=== PATIENT | female | born 1945 | race Caucasian/White ===

== ENCOUNTER → 2017-01-30 | Outpatient (CLI) | payer MEDICARE, OTHER ==
[~2017-01-30] MED LIST: ASCORBIC ACID500 MG PO; DESYREL-DPS50 MG PO; FEOSOL-DPS325 MG PO; FLEXERIL-DPS10 MG PO; FOSAMAX70 MG PO; HCTZ12.5 MG PO; MIRALAX PACKET17 GM PO; OXY IR DPS5 MG PO; OYSTER SHELL C500 MG PO; SENOKOT S1 TAB PO; TYLENOL DPS325 MG PO; ULTRAM DPS50 MG PO; XARELTO10 MG PO; ZESTRIL DPS20 MG PO; ZOLOFT DPS50 MG PO
== END | disposition home or self-care (01) ==
LOC: PTH.S 09:14 → EDBD 10:49
DX: Z01.818 Encounter for other preprocedural examination (principal); I10 Essential (primary) hypertension; R00.1 Bradycardia, unspecified

== ENCOUNTER 2017-02-05 09:13 | Inpatient (IN) | payer MEDICARE, OTHER ==
[~2017-02-05] VITALS: Ht 157.5 cm; Wt 78.2 kg
--- NOTE | 2017-02-05 13:44 | HP ---
ADMIT: 02/05/2017 RM/LOC: W.01 [facility] MR#: [id number] [address] [address] JOHNY MAYO [address] [place] [address] Pre-OP History and Physical SEX: F AGE: 71 : 1945 DATE OF SERVICE: CHIEF COMPLAINT: Osteoarthritis, right knee. HISTORY: This patient presents today. She had a knee arthroscopy back in October and did well initially, but then had a recurrent injury and since that time, her radiographs show a considerable progression of her lateral compartment arthritis with joint space collapse, subchondral sclerosis, and early marginal osteophytes. Because of ongoing pain and failure to improve with conservative care, which has included medication, walking aid, and injection, she presents with total knee arthroplasty. PAST SURGICAL HISTORY: Include a gastric bypass, mastectomy, hysterectomy, cataract extraction, tonsillectomy, carpal tunnel release, rotator cuff repair, and total hip arthroplasty. MEDICATIONS: Include: 1. Trazodone. 2. Sertraline. 3. Lisinopril. 4. Hydrochlorothiazide. 5. Extra-strength Excedrin as needed. ALLERGIES: NO ALLERGIES TO MEDICINES. FAMILY HISTORY: Positive for breast cancer. SOCIAL HISTORY: The patient is . She and live in [facility]. REVIEW OF SYSTEMS: Negative. PHYSICAL EXAMINATION: This patient has a valgus deformity of the right knee. She has lateral joint line pain and small effusion. Limited range of motion secondary to pain. RADIOGRAPHS: Were described above. IMPRESSION: Osteoarthritis, right knee. RECOMMENDATIONS: Total knee arthroplasty. Risks, benefits, alternatives, as well as potential complications were discussed. Deyanira Paul MD/ miracle JOB #: [id number] CC: Deyanira Paul, Attending Physician ADMIT: 02/05/2017 RM/LOC: W.01 [facility] MR#: [id number] [facility] [address] [address] JOHNY MAYO [address] [place], [place] [id number] Pre-OP History and Physical SEX: F AGE: 71 : 1945 Neil Perez, Family Physician
--- NOTE | 2017-02-06 07:44 | OR ---
ADMIT: 02/05/2017 RM/LOC: 505 [facility] MR#: [id number] [address] [address] JOHNY MAYO [address] [place] [address] Operative/Delivery Room Report SEX: F AGE: 71 : 1945 SURGERY DATE: 02/05/2017 SURGEON: Deyanira Paul MD PREOPERATIVE DIAGNOSIS: Osteoarthritis, right knee. POSTOPERATIVE DIAGNOSIS: Osteoarthritis, right knee. PROCEDURE: Right total knee arthroplasty. ASSISTED BY: OLIVIA Black ANESTHESIA: Spinal. TOURNIQUET TIME: 43 minutes. ESTIMATED BLOOD LOSS: 25 mL. COMPLICATIONS: None. SPECIMEN: Bone. COMPONENTS: Darius and Darius Attune total knee system with a #5 posterior stabilized lugged femoral, #4 fixed bearing tibial, 5 mm tibial articular, and 38 mm patella. We used [place] SpeedSet bone cement 80 g for the tibia and femur and another 40 mg of [place] SpeedSet without antibiotics for the patella. PROCEDURE IN DETAIL: This patient was brought to the operating room. After satisfactory level anesthesia was achieved, the right lower extremity was prepped and draped in the usual sterile fashion. Under tourniquet ischemia, a midline incision was made over the anterior aspect of the right knee. Dissection was carried through the subcutaneous tissue where hemostasis was achieved using electrocautery. Skin flaps were made at the level of joint capsule. A medial parapatellar incision was performed. The knee was flexed, and then using an intramedullary alignment guide, I prepared the distal femur for a #5 posterior stabilized lugged femoral component. She did have quite a bit of osteoporosis particularly over the medial femoral condyle and medial femoral trochlea. An external alignment guide was made and used to make my tibial cut and a #4 gave us best coverage to the proximal tibia. Again, she did have a fair amount of osteoporosis. With trial components in the knee, the patient had very good range of motion and stability. The patella was measured and cut and prepared for 38 mm patellar component. At this point, all trial components were removed. Our local injection was injected per protocol and then all bony surface was thoroughly irrigated using pulsatile lavage. All surfaces were dried. Then, the femur and tibia were cemented ADMIT: 02/05/2017 RM/LOC: 505 [facility] MR#: [id number] [address] [address] JOHNY MAYO [address] [place] [address] Operative/Delivery Room Report SEX: F AGE: 71 : 1945 into position and found that the bone cement was getting fairly hard for the patella, and therefore, we held the knee in extension, irrigated with warm antibiotic solution and a 40 mg batch of [place]uy SpeedSet bone cement was mixed and I cemented in the patellar component. Once all the cement had hardened, I flexed the knee, removed any extruded cement with an osteotome, irrigated the knee to remove any cement debris, then released the tourniquet. Hemostasis was achieved using electrocautery. My final component was impacted on the tibia and the knee reduced. At this point, the knee was closed with interrupted #1 Vicryl and running #2 Quill suture, and the capsule and synovium as a single layer, 2-0 Vicryl in the subcutaneous tissue, and then amrit in the skin. A sterile dressing was applied and the patient was transferred from the operative suite in stable condition. Deyanira Paul MD/ miracle JOB #: [id number] CC: Deyanira Paul, Attending Physician Neil Perez, Family Physician
[2017-02-08] MEDS ORDERED: DESYREL-DPS50 MG PO (18:46)
[2017-02-08] MEDS ORDERED: ZESTRIL DPS20 MG PO (18:46)
[2017-02-08] MEDS ORDERED: ZOLOFT DPS50 MG PO (18:46)
[2017-02-08] MEDS ORDERED: HCTZ12.5 MG PO (18:46)
[2017-02-08] MEDS ORDERED: FOSAMAX70 MG PO (18:47)
[2017-02-08] MEDS ORDERED: OYSTER SHELL C500 MG PO (18:47)
[2017-02-08] MEDS ORDERED: ULTRAM DPS50 MG PO (18:48)
[2017-02-08] MEDS ORDERED: FEOSOL-DPS325 MG PO (18:48)
[2017-02-08] MEDS ORDERED: SENOKOT S1 TAB PO (18:48)
[2017-02-08] MEDS ORDERED: TYLENOL DPS325 MG PO (18:48)
[2017-02-08] MEDS ORDERED: XARELTO10 MG PO (18:49)
[2017-02-08] MEDS ORDERED: ASCORBIC ACID500 MG PO (18:49)
[2017-02-08] MEDS ORDERED: FLEXERIL-DPS10 MG PO (18:49)
[2017-02-08] MEDS ORDERED: MIRALAX PACKET17 GM PO (18:50)
[2017-02-08] MEDS ORDERED: OXY IR DPS5 MG PO (18:50)
--- NOTE | 2017-02-09 08:51 | CO ---
ADMIT: 02/05/2017 RM/LOC: [facility] MR#: [id number] [id number] [place], [place] [address] JOHNY MAYO [address] [place] [address] Consultation Report SEX: F AGE: 71 : 1945 DATE OF CONSULTATION: 01/30/2017 ATTENDING PHYSICIAN: Deyanira Paul CONSULTING PHYSICIAN: Neil Perez MD CHIEF COMPLAINT: Right knee pain. REASON FOR CONSULTATION: Medical comanagement. HISTORY OF PRESENT ILLNESS: Johny is a very pleasant, 71-year-old white female, who presents to my outpatient clinic today 01/30/2017 for a preoperative exam. She will be having an elective right total knee arthroplasty with Dr. Paul on 02/05/2017. She has chronic osteoarthritis pain in the knee and is now requesting that it be definitively repaired. PAST MEDICAL HISTORY: Remarkable for: 1. Hypertension. 2. 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 3. Insomnia. 4. Depression. 5. Osteoporosis. 6. Osteoarthritis of the left knee. 7. Osteoarthritis of the right knee. 8. Allergic rhinitis. PAST SURGICAL HISTORY: 1. Gastric bypass. 2. Left total mastectomy. 3. Cholecystectomy. 4. Bilateral total hip arthroplasties. 5. Tonsillectomy. 6. Hysterectomy. ALLERGIES: SHE IS ALLERGIC TO DEMEROL WHICH "CAUSED HER TO BE "TOTALLY OUT OF IT." MEDICATIONS: Her outpatient medications include; 1. Naproxen 220 mg tablets two tabs daily. 2. Trazodone 50 mg at bedtime. 3. Lisinopril 20 mg b.i.d. 4. Zoloft 150 mg daily. 5. Fosamax 70 mg once a week. 6. Os-Herson + D 500/200 one tab b.i.d. 7. Hydrochlorothiazide 25 mg tablets 1/2 tab daily. SOCIAL HISTORY: She is to her Robert. She is retired from the [employer]. She is a former smoker, quit in 1992. She denies any alcohol or recreational drug use. ADMIT: 02/05/2017 RM/LOC: [facility] MR#: [id number] [address] [address] JOHNY MAYO [address] [place], [place] [id number] Consultation Report SEX: F AGE: 71 : 1945 REVIEW OF SYSTEMS: She denies any chest pain, shortness of breath, dyspnea on exertion. She is able to walk up a flight of stairs and several blocks without any chest pain, or dyspnea. She notes that her knee pain limits her more than anything else. She has not had any previous heart or chronic lung disease. PHYSICAL EXAMINATION: VITAL SIGNS: Her blood pressure is 116/60, pulse 72, respirations 16, temp 96.8, weight is 170 pounds, height is 61-1/2 inches. GENERAL: She is awake, alert, in no acute distress, comfortable in the exam room today. HEENT: Normocephalic and atraumatic. NECK: Supple. No lymphadenopathy. No thyromegaly. HEART: Regular rate and rhythm. No murmurs, gallops, or rubs. LUNGS: Clear to auscultation bilaterally. EXTREMITIES: No cyanosis, clubbing, or edema. LABORATORY AND X-RAY DATA: Preoperative CBC shows a hemoglobin of 11.1, white count 4.8, and platelet count of 195. BMP is without clinically significant abnormalities, and a preoperative EKG shows sinus bradycardia without any ischemic changes or conduction abnormalities. ASSESSMENT: 1. Chronic osteoarthritis of the right knee. 2. Hypertension. 3. Osteoporosis. 4. Depression. PLAN: Johny is cleared to proceed with her surgery at this time. She is advised to hold her naproxen until her day of surgery. She is advised that should she need anything for pain, she is to use Tylenol, and if that is not working she is to call me and I will give her prescription for Ultram. The remainder of her medications, she is advised to hold the morning of surgery. We can readdress and reinstitute those as soon as she is done with her surgery. Postoperatively, we will plan on Xarelto for deep vein thrombosis prophylaxis. Neil Perez MD/ miracle JOB #: [id number] CC: Deyanira Paul, Attending Physician UNKNOWN, Family Physician
--- NOTE | 2017-03-05 11:55 | DS ---
ADMIT: 02/05/2017 RM/LOC: 505 [facility] MR#: [id number] 26[address] [facility] [address] [place], [place] [address] VINICIO MAYO [address] [place] [address] General Discharge Summary SEX: F AGE: 71 : 1945 ADMISSION DATE: 02/05/2017 DISCHARGE DATE: 02/07/2017 REASON FOR ADMISSION: Elective right total knee arthroplasty after failing conservative care. PAST SURGICAL HISTORY: Includes gastric bypass, mastectomy, hysterectomy, cataract extraction, tonsillectomy, carpal tunnel release, rotator cuff repair and total hip arthroplasty. ACTIVE MEDICAL PROBLEMS: Hypertension, insomnia, depression, osteoporosis, osteoarthritis of the right and left knee, and allergic rhinitis. PREOPERATIVE DIAGNOSIS: Right knee osteoarthritis. POSTOPERATIVE DIAGNOSIS: Right knee osteoarthritis. PROCEDURE PERFORMED: Right total knee arthroplasty. SURGEON: Deyanira Paul MD FINANCIAL OPERATIONS CONSULTANT: aCio Varner PA-C ANESTHESIA: Spinal. TOURNIQUET TIME: 43 minutes. ESTIMATED BLOOD LOSS: 25 mL. COMPLICATIONS: None. HOSPITAL COURSE: The patient was admitted on 02/05/2017 for elective right total knee arthroplasty done by Dr. Paul without any complications. The patient tolerated the procedure well. Postoperatively on day 1, the patient complained of knee pain and itching on her right knee, which resolved without any complications. As expected, she did suffer from acute blood loss anemia. Her hemoglobin dropped to 9.2 on 02/07/2017, but she remained hemodynamically stable and did not require blood transfusion. By postoperative day #2, she was safe and participating well with physical therapy. She was stable and ready for discharge home with plans for outpatient physical therapy. DISCHARGE MEDICATIONS: 1. Sertraline 150 mg every day. 2. Trazodone 50 mg in the evening. 3. Lisinopril 20 mg twice daily. 4. Hydrochlorothiazide 12.5 mg in the evening. 5. Oyster shell 500 mg supplement twice daily. 6. Alendronate 70 mg weekly on Wednesdays. 7. Feosol 325 mg supplement twice daily. ADMIT: 02/05/2017 RM/LOC: 505 [facility] MR#: [id number] [address] [address] MARIA ESTHERIVETTEVINICIO K [address] [place] [address] General Discharge Summary SEX: F AGE: 71 : 1945 8. Senokot 2 tablets twice daily. 9. Tylenol 650 mg every 6 hours as needed for pain and fever. 10.Ultram 50 mg 1 to 2 tablets every 6 hours as needed for pain. 11.Vitamin C 500 mg every day with ferrous sulfate. 12.Xarelto 10 mg every day. 13.Flexeril 10 mg 3 times daily as needed for muscle relaxing. 14.Oxycodone IR 5 mg 1 to 2 tablets every 4 hours as needed for pain. 15.MiraLax 17 g daily as needed. DISCHARGE INSTRUCTIONS: The patient was discharged home with plans for outpatient physical therapy per total knee arthroplasty protocol. Follow up in the orthopedic office in 2 weeks for wound check, in 6 weeks with x-ray. Follow up with primary care as directed. OLIVIA Mcdonald / Deyanira Paul MD / garyl JOB #: [id number] CC: Deyanira Paul MD, Attending Physician Neil Perez MD, Family Physician
== END 2017-02-07 16:43 | disposition home or self-care (01) | DRG 470 ==
LOC: WOR 09:40 → 5MS 09:40 → EDBD 02-07 16:43
PROVIDERS: ADMIT Orthopaedic Surgery
PROC: 0SRC0J9 Replacement of Right Knee Joint with Synthetic Substitute, Cemented, Open Approach (ICD-10-PCS; principal; 2017-02-05)
DX: M17.11 Unilateral primary osteoarthritis, right knee (principal); D62 Acute posthemorrhagic anemia; I10 Essential (primary) hypertension; G47.00 Insomnia, unspecified; F32.9 Major depressive disorder, single episode, unspecified; M81.0 Age-related osteoporosis without current pathological fracture; J30.9 Allergic rhinitis, unspecified; F41.9 Anxiety disorder, unspecified; E66.9 Obesity, unspecified; Z68.30 Body mass index [BMI] 30.0-30.9, adult; Z90.12 Acquired absence of left breast and nipple; Z96.643 Presence of artificial hip joint, bilateral; Z87.891 Personal history of nicotine dependence; Z98.84 Bariatric surgery status

== ENCOUNTER → 2017-02-19 | Outpatient (CLI) | payer MEDICARE, OTHER | END | disposition home or self-care (01) | LOC: ER 17:29 → EDBD 17:29 → EDSTATUS 17:55 → THER.SSS 18:09 | DX: N17.9 Acute kidney failure, unspecified (principal) ==